=== PATIENT | female | born 1995 | race Asian ===

== ENCOUNTER 2021-03-11 11:26 | Outpatient (CLI) | payer OTHER | END 2021-03-11 11:44 | disposition home or self-care (01) | LOC: SONOGRAMA 11:26 → MRI 03-19 10:15 | DX: Q51.818 Other congenital malformations of uterus (principal) ==

== ENCOUNTER 2021-03-19 09:38 | Outpatient (CLI) | payer OTHER | END 2021-03-19 09:53 | disposition home or self-care (01) | LOC: MRI 09:38 | DX: R10.2 Pelvic and perineal pain (principal); Q51.818 Other congenital malformations of uterus | CPT/HCPCS: 72197 ==